=== PATIENT | female | born 1970 | race Caucasian/White ===

== ENCOUNTER 2017-11-16 08:08 | Emergency (ER) | payer SELFPAY ==
[~2017-11-16] VITALS: Ht 157.5 cm; Wt 68.0 kg
[2017-11-16 08:11] VITALS: BP 112/60
--- NOTE | 2017-11-16 08:16 | NUR ---
PT AMBULATED TO ER BED 12
--- NOTE | 2017-11-16 08:23 | NUR ---
PATIENT PRESENTS TO ED WITH COMPLAINTS OF ABDOMINAL PAIN, BLOATING, N/V/D X 6 DAYS. PATIENT REPORTS VOMITING ONLY ONE DAY BUT HAS HAD ABDOMINAL PAIN, BLOATING, AND SEVERE FLATUS SINCE. BOWEL SOUNDS HYPOACTIVE IN ALL 4 QUADRANTS; BELLY ROUND AND DISTENDED; NEGATIVE FOR REBOUND TENDERNESS. SKIN IS PINK/WARM/DRY; AAOX4 WITH EVEN AND STEADY GAIT; LUNGS CLEAR BL; HR EVEN AND REGULAR; PT DENIES ANY FEVER, CP, SOB, OR COUGH AT THIS TIME; PATIENT STATES PAIN OF 9/10 AT THIS TIME; VSS; PATIENT POSITIONED FOR COMFORT; HOB ELEVATED; BEDRAILS UP X1; BED DOWN. ER MD MADE AWARE OF PT STATUS.
[2017-11-16] MEDS ORDERED: PANTOPRAZOLE 40 MG TABEC PO ONE (08:40)
[2017-11-16 09:02] VITALS: BP 112/60
--- NOTE | 2017-11-16 09:02 | NUR ---
Patient discharged with v/s stable. Written and verbal after care instructions given and explained. Patient alert, oriented and verbalized understanding of instructions. Ambulatory with steady gait. All questions addressed prior to discharge. ID band removed. Patient advised to follow up with PMD. Rx of PROTONIX given. Patient educated on indication of medication including possible reaction and side effects. Opportunity to ask questions provided and answered.
== END 2017-11-16 09:02 | disposition home or self-care (01) ==
LOC: MED 08:08
DX: R14.0 Abdominal distension (gaseous) (principal); Z88.0 Allergy status to penicillin
CPT/HCPCS: 74018; 99283; Q0092

== ENCOUNTER 2022-11-13 19:40 | Emergency (ER) | payer SELFPAY ==
[~2022-11-13] VITALS: Ht 157.5 cm; Wt 77.1 kg
[2022-11-13 19:48] VITALS: BP 136/85; PULSE 96; RESP 16; TEMP 97.7; O2SAT 98
--- NOTE | 2022-11-13 19:48 | NUR ---
to bed ambulatory
--- NOTE | 2022-11-13 20:09 | NUR ---
51YO F BIB SELF C/O ABSCESS BEHIND RIGHT EAR X 2 MONTHS. PT STATES SHE TRIED TO POP ABSCESS AND PUSS WAS EXCRETED FROM ABSCESS. PT STATES PAIN LEVEL 2/10 WHEN TOUCHING ABSCESS. PENICILLINS NO MED HX
--- NOTE | 2022-11-13 20:10 | NUR ---
PA IN ROOM.
[2022-11-13] MEDS ORDERED: SULF-59 PO (20:20)
[2022-11-13] MEDS ORDERED: HYDROcodone/APAP 5/325 MG 1 TAB TAB PO ONE (20:40)
--- NOTE | 2022-11-13 20:40 | NUR ---
Patient discharged with v/s stable. Written and verbal after care instructions given and explained. Patient verbalized understanding. Ambulatory with steady gait. All questions addressed prior to discharge. Advised to follow up with PMD.
[2022-11-13 20:41] VITALS: O2SAT 98
== END 2022-11-13 20:40 | disposition home or self-care (01) ==
LOC: MED 19:40
DX: L02.811 Cutaneous abscess of head [any part, except face] (principal); Z79.899 Other long term (current) drug therapy
CPT/HCPCS: 99283

== ENCOUNTER 2022-11-15 10:06 | Emergency (ER) | payer MEDICAID ==
[~2022-11-15] VITALS: Ht 152.4 cm; Wt 81.6 kg
[~2022-11-15 10:06] MED LIST: SULF-59 PO
[2022-11-15 10:42] VITALS: BP 154/111; PULSE 86; RESP 19; TEMP 98; O2SAT 98
--- NOTE | 2022-11-15 11:10 | NUR ---
PT WALKED TO BED 7.
--- NOTE | 2022-11-15 11:12 | NUR ---
BLAIR ANTONY AT BEDSIDE
--- NOTE | 2022-11-15 11:18 | NUR ---
51YO F PRESENTS FOR HEAD WOUND CHECK, WAS SEEN 2 DAYS AGO, I&D DONE, DENIES FEVER, CHILLS, DRAINAGE/PUS, PAIN. NO REDNESS NOTED OR DRAINAGE. NAD.
== END 2022-11-15 11:25 | disposition home or self-care (01) ==
LOC: MED 10:06
DX: Z48.01 Encounter for change or removal of surgical wound dressing (principal); Z79.2 Long term (current) use of antibiotics; Z88.0 Allergy status to penicillin
CPT/HCPCS: 99281